=== PATIENT | female | born 1985 | race Caucasian/White ===

== ENCOUNTER 2019-05-15 20:18 | Emergency (ER) | payer OTHER ==
[2019-05-15] MEDS: ACETAMINOPHEN 325 MG TAB PO (21:06)
== END 2019-05-15 22:18 | disposition home or self-care (01) ==
LOC: FTE 22:18
DX: O91.23 Nonpurulent mastitis associated with lactation (principal); R50.9 Fever, unspecified
CPT/HCPCS: 99283